=== PATIENT | male | born 1940 | race Caucasian/White ===

== ENCOUNTER 2020-11-25 11:56 | Outpatient (CLI) | payer MEDICARE | END 2020-11-25 11:57 | disposition home or self-care (01) | LOC: CSHCT 11:56 | PROVIDERS: ATTEND Physician Assistant Medical | DX: R17 Unspecified jaundice (principal); R74.8 Abnormal levels of other serum enzymes; N50.89 Other specified disorders of the male genital organs; K83.9 Disease of biliary tract, unspecified; Z90.49 Acquired absence of other specified parts of digestive tract; N20.0 Calculus of kidney; K40.90 Unilateral inguinal hernia, without obstruction or gangrene, not specified as recurrent | CPT/HCPCS: 74178; 82565 ==